=== PATIENT | male | born 1990 | race Caucasian/White ===

== ENCOUNTER 2021-12-15 07:49 | Emergency (ER) | payer OTHER, SELFPAY ==
[2021-12-15 07:55] VITALS: BP 137/89; PULSE 87; RESP 15; TEMP 36.9; O2SAT 97; BMI 27.2
--- NOTE | 2021-12-15 08:25 | CT_ITS ---
WS: [id number] CT ABDOMEN PELVIS TECHNIQUE: Contrast-enhanced CT of the abdomen and pelvis with coronal and sagittal reformatted image s. CLINICAL INFORMATION: abd pain COMPARISON: None. DLP: 466.[address] scans at [facility] use at least one of these dose optimization techniques: automated e xposure control; mA and/or kV adjustment per patient size (includes targeted exams where dose is matc hed to clinical indication); or iterative reconstruction. FINDINGS: Lung bases are well aerated. Normal portal vein and splenic vein. Mild hepatomegaly. Normal spleen. N ormal GE junction. Submucosal enhancement in the stomach can be seen with gastritis. Stomach and duod enum otherwise appear normal. Adrenal glands are normal. Normal renal parenchymal enhancement. No hyd ronephrosis. Normal pancreatic parenchymal enhancement. Normal caliber abdominal aorta. Celiac and SM A are patent. Normal caliber abdominal aorta. Normal sigmoid colon. No evidence of high-grade small or large bowel obstruction. Normal appendix in the RIGHT lower quadrant. No free fluid in the abdomen or pelvis. CT/CT abdomen pelvis w con* [id number] IMPRESSION: 1. Normal GE junction. Mild submucosal enhancement in the stomach can be seen with gastritis. Stomach and duodenum otherwise appear normal. 2. Mild hepatomegaly. 3. Normal caliber abdominal aorta. 4. No hydronephrosis in either kidney. 5. No other suspicious findings.
--- NOTE | 2021-12-15 08:30 | ED_ITS ---
HPI - Nausea/Vomiting/Diarrhea General: Chief complaint: Nausea/Vomiting/Diarrhea Stated complaint: Vomitting blood Time Seen by Provider: 12/15/21 07:50 Source: patient History of Present Illness: 31-year-old male presents emergency room with complaint of vomiting blood. He states he began vomiting yesterday and got progressively worse he has had several episodes with streaks of bright red blood. He is not on any blood thinners he has not previously had any upper GI bleeds or surgeries. He does not take any proton pump inhibitors or H2 blockers. He denies any fever sweats or chills denies any dysuria urgency or frequency no melena no hematochezia no black tarry stools. Denies regular use of alcohol no history of cirrhosis or esophageal varices. MD elicited complaint: nausea and vomiting Onset (ago): hour(s) Description of vomiting: watery and blood-streaked Associated nausea: Yes Associated abdominal pain: Yes Quality: cramping Exacerbating factors: none Relieving factors: none Associated symtoms: Reports nausea; Denies altered mental status, anxiety, bloating, change in vision, chest pain, cough, diaphoresis, decreased urine output, dizziness, dysuria, epistaxis, fatigue, fecal incontinence, fevers/chills, headache(s), anorexia, malaise, myalgias, numbness, palpitations, rash, short of breath, syncope, tenesmus, tinnitus or weakness Review of Systems Const: Denies: fever(s), chills, fatigue, malaise or diaphoresis Eyes: Denies: change in vision ENMT: Denies: tinnitus or epistaxis Card: Denies: chest pain, palpitations or syncope Resp: Denies: dyspnea, productive cough or non-productive cough GI: Reports: abdominal pain, nausea, vomiting and hematemesis; Denies: coffee ground emesis, diarrhea, bloating or fecal incontinence : Denies: flank pain, difficulty urinating, dysuria, urinary frequency, urinary urgency or urinary hesitancy Musc: Denies: neck pain or back pain Skin/Breast: Denies: rash or pruritus Neuro: Denies: headache(s) or dizziness Psych: Denies: anxiety PFSH ED PFSH: Medical History (Updated 12/15/21 @ 11:14 by Lele Early DO) No significant past medical history Surgical History (Updated 12/15/21 @ 08:33 by Lele Early DO) No significant past surgical history Social History (Updated 12/15/21 @ 08:33 by Lele Early DO) Smoking and tobacco status: current every day smoker Alcohol intake: current Alcohol intake frequency: 0-2 Drinks per Day Physical Exam Const: EXAM LIMITATIONS: no altered mental status GENERAL APPEARANCE: cooperative and comfortable ORIENTATION/CONSCIOUSNESS: Yes awake, Yes oriented to person, Yes oriented to place and Yes oriented to time HENMT: COMMON NORMALS: normocephalic, atraumatic and hearing grossly normal bilaterally HEAD & SCALP: normocephalic and atraumatic Resp: COMMON NORMALS: normal respiratory effort, No retractions, No use of accessory muscles and clear to auscultation bilaterally AUSCULTATION: clear to auscultation bilaterally Cardio: COMMON NORMALS: regular rate, regular rhythm and No murmurs present (Cardio) RATE: regular rate RHYTHM: regular rhythm GI: COMMON NORMALS: Soft to palpation and No hepatosplenomegaly present AUSCULTATION: Yes normoactive bowel sounds PALPATION: Yes Soft to palpation, No Tenderness to palpation present (GI), No Guarding due to palpation present (GI) and Yes No hepatosplenomegaly present Extremity: COMMON NORMALS: normal to inspection, capillary refill normal, no clubbing, cyanosis or edema, no calf tenderness and no pedal edema Neuro: SENSORIUM/ORIENTATION: Yes oriented to person, Yes oriented to place and Yes oriented to time Skin: COMMON NORMALS: no rashes or lesions noted GENERAL SKIN EXAM: no rashes or lesions noted Course Vital Signs: Vital signs: Vital Signs Temperature 98.4 F 12/15/21 07:55 Pulse Rate 74 12/15/21 10:30 Respiratory Rate 15 12/15/21 07:55 Blood Pressure 125/78 12/15/21 10:30 Pulse Oximetry 99 12/15/21 10:30 Oxygen Delivery Me thod 12/15/21 07:55 MDM - Nausea/Vomiting/Diarrhea Medical Decision Making Labs and imaging reviewed no further emesis while in the emergency room. 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 Return if has worsening symptoms. Medical Records I reviewed the patient's medical records. Lab Data I reviewed the patient's lab results. : 12/15/21 08:30 12/15/21 08:30 Radiology Impressions Abdomen/Pelvis CT 12/15/21 08:25 IMPRESSION: 1. Normal GE junction. Mild submucosal enhancement in the stomach can be seen with gastritis. Stomach and duodenum otherwise appear normal. 2. Mild hepatomegaly. 3. Normal caliber abdominal aorta. 4. No hydronephrosis in either kidney. 5. No other suspicious findings. Laboratory Results WBC 7.1 10^3/uL (4.0-10.0) 12/15/21 08:30 RBC 4.49 10^6/uL (4.1-5.3) 12/15/21 08:30 Hgb 14.9 g/dL (11.7-16.6) 12/15/21 08:30 Hct 43.1 % (42.0-52.0) 12/15/21 08:30 MCV 96.0 fl (80-94) H 12/15/21 08:30 MCH 33.2 pg (28.0-34.0) 12/15/21 08:30 MCHC 34.6 g/dL (30.0-36.0) 12/15/21 08:30 RDW 12.7 % (12.1-15.1) 12/15/21 08:30 Plt Count 417 10^3/cmm (130-400) H 12/15/21 08:30 MPV 9.1 fL (7.4-10.4) 12/15/21 08:30 Neut % (Auto) 80.3 % 12/15/21 08:30 Lymph % (Auto) 12.3 % 12/15/21 08:30 [place] % (Auto) 6.2 % 12/15/21 08:30 Eos % (Auto) 0.3 % 12/15/21 08:30 Baso % (Auto) 0.3 % 12/15/21 08:30 Neut # (Auto) 5.67 10^3/uL (1.8-7.7) 12/15/21 08:30 Lymph # (Auto) 0.9 10^3/uL (0.8-4.8) 12/15/21 08:30 [place] # (Auto) 0.4 10^3/uL (0.2-0.9) 12/15/21 08:30 Eos # (Auto) 0.0 10^3/uL (0.0-0.8) 12/15/21 08:30 Baso # (Auto) 0.0 10^3/uL (0.0-0.1) 12/15/21 08:30 Nucleated RBC % (auto) 0 % 12/15/21 08:30 Nucleated RBCs # 0.0 /100WBC 12/15/21 08:30 PT 13.50 SECONDS (12.1-14.9) 12/15/21 08:30 INR 1.00 (0.8-1.2) 12/15/21 08:30 APTT 31.4 SECONDS (23.9-36.7) 12/15/21 08:30 Sodium 138 mmol/L (136-145) 12/15/21 08:30 Potassium 3.8 mmol/L (3.5-5.1) 12/15/21 08:30 Chloride 101 mmol/L (98-107) 12/15/21 08:30 Carbon Dioxide 27 mmol/L (22-29) 12/15/21 08:30 Anion Gap 13.8 (5-19) 12/15/21 08:30 BUN 8 mg/dL (6-20) 12/15/21 08:30 Creatinine 0.9 mg/dL (0.7-1.2) 12/15/21 08:30 GFR Calculation 99.1 mL/min (90-130) 12/15/21 08:30 Glucose 110 mg/dL (65-115) 12/15/21 08:30 POC Glucose 103 mg/dL (70-110) 12/15/21 08:25 Calculated Osmolality 285 mOsm/kg (285-295) 12/15/21 08:30 Calcium 9.0 mg/dL (8.5-10.5) 12/15/21 08:30 Total Bilirubin 0.3 mg/dL (0.15-1.2) 12/15/21 08:30 AST 17 U/L (0-40) 12/15/21 08:30 ALT 12 U/L (0-41) 12/15/21 08:30 Alkaline Phosphatase 118 U/L (40-130) 12/15/21 08:30 Creatine Kinase 64 U/L (39-308) 12/15/21 08:30 Total Protein 7.1 g/dL (6.6-8.7) 12/15/21 08:30 Albumin 4.1 g/dL (3.5-5.2) 12/15/21 08:30 Globulin 3.0 g/dL (1.3-4.6) 12/15/21 08:30 Lipase 19 U/L (13-60) 12/15/21 08:30 Blood Type O Positive 12/15/21 08:30 Rho(D) Type Positive 12/15/21 08:30 Antibody Screen Negative 12/15/21 08:30 Discharge Plan Discharge Patient Disposition: Home Clinical Impression: Nausea and vomiting, Lela-Kurtz syndrome Condition: Stable Prescriptions: New ondansetron HCl 4 mg tablet 4 mg PO Q6H PRN (Reason: nausea and vomiting) Qty: 20 0RF Protonix 40 mg tablet,delayed release (DR/EC) 40 mg PO QAM Qty: 30 0RF Discharge Orders: Discharge ED (Routine); Ordered 12/15/21 Ordered By: Lele Early Referrals: Kae Holman MD [Primary Care Provider] - Discharge Diet: Full LIquid Discharge Activity: Increase activity as tolerated Patient Instructions: Opioid Safety, Pain Management Activity Restrictions/Additional Instructions: Clear liquid diet for 1 to 2 days and advance as tolerated start on the Protonix 40 mg twice a day for 7 days then once daily after that. Case management make arrangements for you to see general surgery for EGD. Return if you have worsening symptoms. Coding Level of Care Code ED Box Sealing Inspector for [place] Fwd Exam Detailed
[2021-12-15 08:41] LABS: Glucose Point of Care 103 mg/dL (70-110)
[2021-12-15 08:50] LABS: Basophils % 0.3 %; Eosinophils % 0.3 %; Hematocrit 43.1 % (42.0-52.0); Hemoglobin 14.9 g/dL (11.7-16.6); Lymphocytes # 0.9 10^3/uL (0.8-4.8); Lymphocytes % 12.3 %; Mean Corpuscular HGB Conc 34.6 g/dL (30.0-36.0); Mean Corpuscular Hemoglobin 33.2 pg (28.0-34.0); Mean Platelet Volume 9.1 fL (7.4-10.4); Monocytes # 0.4 10^3/uL (0.2-0.9); Monocytes % 6.2 %; Neutrophils # 5.67 10^3/uL (1.8-7.7); Neutrophils % 80.3 %; Nucleated Red Blood Cells % 0 %; Platelet Count 417 10^3/cmm (130-400); Red Blood Count 4.49 10^6/uL (4.1-5.3); Red Cell Distribution Width 12.7 % (12.1-15.1); White Blood Count 7.1 10^3/uL (4.0-10.0)
[2021-12-15] MEDS: iohexol 350 mg/mL 100 mL Btl IV (08:50)
[2021-12-15 09:01] VITALS: BP 135/82; PULSE 87; O2SAT 99
[2021-12-15 09:02] LABS: Partial Thromboplastin Time 31.4 SECONDS (23.9-36.7)
[2021-12-15 09:13] LABS: Alanine Aminotransferase 12 U/L (0-41); Albumin Level 4.1 g/dL (3.5-5.2); Alkaline Phosphatase 118 U/L (40-130); Anion Gap 13.8 (5-19); Aspartate Amino Transferase 17 U/L (0-40); Blood Urea Nitrogen 8 mg/dL (6-20); Carbon Dioxide 27 mmol/L (22-29); Chloride 101 mmol/L (98-107); Creatine Phosphokinase 64 U/L (39-308); Creatinine Clr Calc Pharmacy 132.8712; Glomerular Filtration Rate 99.1 mL/min (90-130); Glucose 110 mg/dL (65-115); Lipase 19 U/L (13-60); Osmolality Calculated 285 mOsm/kg (285-295); Potassium 3.8 mmol/L (3.5-5.1); Sodium 138 mmol/L (136-145); Total Bilirubin 0.3 mg/dL (0.15-1.2); Total Protein 7.1 g/dL (6.6-8.7)
[2021-12-15] MEDS: ondansetron 2 mg/ML SDV 2 mL 4 MG IVP (09:19)
[2021-12-15] MEDS: pantoprazole 40 mg SDV IVP (09:19)
[2021-12-15] MEDS: sodium chloride 0.9% 1,000 ML 999 ML IV ×2 (09:20→10:51)
[2021-12-15 09:30] VITALS: BP 128/73; PULSE 71; O2SAT 99
[2021-12-15 10:00] VITALS: BP 124/71; PULSE 75; O2SAT 97
[2021-12-15 10:30] VITALS: BP 125/78; PULSE 74; O2SAT 99
[2021-12-15 11:31] VITALS: BP 116/61; PULSE 68; RESP 16; O2SAT 98
== END 2021-12-15 11:33 | disposition home or self-care (01) ==
PROVIDERS: Emergency Provider Family Medicine; PCP Family Medicine
DX: R11.2 Nausea with vomiting, unspecified (principal); K22.6 Gastro-esophageal laceration-hemorrhage syndrome; F17.210 Nicotine dependence, cigarettes, uncomplicated
CPT/HCPCS: 36416; 74177; 80053; 82550; 82962; 83690; 85025; 85610; 85730; 86850; 86900; 96361; 96374; 96375; 99285; C9113; J2405; J7030; Q9967

== ENCOUNTER 2022-06-16 12:27 | Emergency (ER) | payer SELFPAY ==
[2022-06-16] VITALS (18 sets, daily range): BP systolic 120–161; BP diastolic 78–96; PULSE 90–97; RESP 16–18; TEMP 36.3; O2SAT 99–100
--- NOTE | 2022-06-16 13:56 | W.ED.EXTPRO ---
Documented by User: ALIRIO Espinoza 06/17/22 08:03 HPI - Extremity Problem General: Chief complaint: Extremity Problem,Nontraumatic Stated complaint: sores on legs Time Seen by Provider: 06/16/22 13:25 History of Present Illness: Patient is a 32-year-old male who comes to the ED with wounds on bilateral legs. Patient says symptoms started about a month and a half ago. First symptoms were small red sore area on skin around the mid ríos region bilaterally. Sores that began to open up and had green/yellow drainage. Sores then began to spread all throughout his legs bilaterally.. Over the last week it is gotten more painful and he rates the pain currently a 9 out of 10 and describes it as a burning type pain in his legs. Says generalized malaise, fatigue and chill. denies any fevers. Denies any IV drug use. Associated symptoms: Deny chest pain, fever(s) or rash Review of Systems Const: Reports: chills, fatigue and malaise; Denies: fever(s) Eyes: Denies: change in vision or eye discomfort ENMT: Denies: throat pain, odynophagia, nasal discharge or nasal congestion Card: Denies: chest pain, palpitations, edema, swelling of feet/ankles, dyspnea on exertion or orthopnea Resp: Denies: dyspnea, productive cough or non-productive cough GI: Denies: abdominal pain, nausea, vomiting, diarrhea, constipation or hematochezia : Denies: flank pain, difficulty urinating, dysuria or hematuria Musc: Denies: neck pain, back pain or extremity swelling Skin/Breast: Reports: sores (Multiple open sores on legs bilaterally.); Denies: rash Neuro: Denies: headache(s), numbness in extremities or weakness in extremities PFS ED PFSH: Medical History No significant past medical history Surgical History (Updated 12/15/21 @ 08:33 by Lele Early DO) No significant past surgical history Social History (Updated 12/15/21 @ 08:33 by Lele Early DO) Smoking and tobacco status: current every day smoker Alcohol intake: current Alcohol intake frequency: 0-2 Drinks per Day Physical Exam Const: COMMON NORMALS: patient oriented x3 and alert GENERAL APPEARANCE: cooperative HENMT: COMMON NORMALS: normocephalic HEAD & SCALP: normocephalic MOUTH: Normal oral and palatal mucosa present THROAT: posterior oropharynx normal and uvula midline Neck/C-Spine: COMMON NORMALS: supple GENERAL: Yes normal visual inspection Resp: COMMON NORMALS: normal respiratory effort, No retractions, No use of accessory muscles and clear to auscultation bilaterally AUSCULTATION: clear to auscultation bilaterally Cardio: COMMON NORMALS: regular rate, regular rhythm, S1 normal heart sound present, S2 normal heart sound present, No gallops present (Cardio), No clicks present (Cardio), No murmurs present (Cardio) and Peripheral pulses 2+ throughout RATE: regular rate RHYTHM: regular rhythm HEART SOUNDS: S1 normal heart sound present and S2 normal heart sound present PERIPHERAL PULSES: Peripheral pulses 2+ throughout GI: COMMON NORMALS: Normal to inspection, nondistended, normoactive bowel sounds present, Soft to palpation, non-tender and no masses PALPATION: Yes Soft to palpation : COMMON NORMALS: Yes no CVA tenderness BLADDER/KIDNEY EXAM: Yes no CVA tenderness Back/Pelvis: COMMON NORMALS: no CVA tenderness Extremity: NARRATIVE EXTREMITY EXAM: Patient has multiple open sores throughout legs bilaterally. No visible purulent drainage seen. Sores have surrounding erythema and warmth. Tenderness throughout his legs bilaterally. GENERAL: Yes edema (1+ pitting edema.) Neuro: COMMON NORMALS: patient oriented x3 SENSORIUM/ORIENTATION: Yes alert GAIT: Yes Normal gait present Skin: GENERAL SKIN EXAM: dry skin Course Vital Signs: Vital signs: Vital Signs Temperature 97.4 F L 06/16/22 13:16 Pulse Rate 90 06/16/22 16:23 Respiratory Rate 18 06/16/22 16:23 Blood Pressure 120/78 06/16/22 16:23 Pulse Oximetry 100 06/16/22 16:23 Oxygen Delivery Me thod Room Air 06/16/22 13:16 MDM - Extremity (Nontraumatic) Medical Decision Making Patient is a 32-year-old male who comes to the ED with wounds on bilateral legs. Patient says symptoms started about a month and a half ago. First symptoms were small red sore area on skin around the mid ríos region bilaterally. Sores that began to open up and had green/yellow drainage. Sores then began to spread all throughout his legs bilaterally.. Over the last week it is gotten more painful and he rates the pain currently a 9 out of 10 and describes it as a burning type pain in his legs. Says generalized malaise, fatigue and chill. denies any fevers. Denies any IV drug use. Vitals are stable patient is afebrile. Patient has multiple open sores throughout legs bilaterally. No visible purulent drainage seen. Sores have surrounding erythema and warmth. Tenderness throughout his legs bilaterally. CBC and CMP unremarkable. CRP 19.8 and lactic was 1.2. Blood cultures and wound culture pending. Patient was given dose of IV vancomycin here in the ED. Exam findings suspicious for MRSA cellulitis. I placed order with case management for patient to be referred to wound care clinic for follow-up. He was stable for discharge home and sent home with a prescription for high-dose Bactrim, mupirocin and hydrocodone for acute pain. Strict return to ED precautions given. Dr. Early reviewed case and agreed with plan. Lab Data I reviewed the patient's lab results. 06/16/22 14:17 06/16/22 14:17 Laboratory Results WBC 8.8 10^3/uL (4.0-10.0) 06/16/22 14:17 RBC 4.52 10^6/uL (4.1-5.3) 06/16/22 14:17 Hgb 15.0 g/dL (11.7-16.6) 06/16/22 14:17 Hct 44.7 % (42.0-52.0) 06/16/22 14:17 MCV 98.9 fl (80-94) H 06/16/22 14:17 MCH 33.2 pg (28.0-34.0) 06/16/22 14:17 MCHC 33.6 g/dL (30.0-36.0) 06/16/22 14:17 RDW 13.8 % (12.1-15.1) 06/16/22 14:17 Plt Count 417 10^3/cmm (130-400) H 06/16/22 14:17 MPV 9.2 fL (7.4-10.4) 06/16/22 14:17 Neut % (Auto) 71.2 % 06/16/22 14:17 Lymph % (Auto) 18.6 % 06/16/22 14:17 [place] % (Auto) 7.8 % 06/16/22 14:17 Eos % (Auto) 1.6 % 06/16/22 14:17 Baso % (Auto) 0.5 % 06/16/22 14:17 Neut # (Auto) 6.23 10^3/uL (1.8-7.7) 06/16/22 14:17 Lymph # (Auto) 1.6 10^3/uL (0.8-4.8) 06/16/22 14:17 [place] # (Auto) 0.7 10^3/uL (0.2-0.9) 06/16/22 14:17 Eos # (Auto) 0.1 10^3/uL (0.0-0.8) 06/16/22 14:17 Baso # (Auto) 0.0 10^3/uL (0.0-0.1) 06/16/22 14:17 Nucleated RBC % (auto) 0 % 06/16/22 14:17 Nucleated RBCs # 0.0 /100WBC 06/16/22 14:17 Sodium 135 mmol/L (136-145) L 06/16/22 14:17 Potassium 4.0 mmol/L (3.5-5.1) 06/16/22 14:17 Chloride 98 mmol/L (98-107) 06/16/22 14:17 Carbon Dioxide 27 mmol/L (22-29) 06/16/22 14:17 Anion Gap 14.0 (5-19) 06/16/22 14:17 BUN 9 mg/dL (6-20) 06/16/22 14:17 Creatinine 0.9 mg/dL (0.7-1.2) 06/16/22 14:17 GFR Calculation 98.4 mL/min (90-130) 06/16/22 14:17 Glucose 92 mg/dL (65-115) 06/16/22 14:17 Calculated Osmolality 278 mOsm/kg (285-295) L 06/16/22 14:17 Lactic Acid 1.2 mmol/L (0.5-2.2) 06/16/22 14:17 Calcium 9.2 mg/dL (8.5-10.5) 06/16/22 14:17 Total Bilirubin 0.3 mg/dL (0.15-1.2) 06/16/22 14:17 AST 30 U/L (0-40) 06/16/22 14:17 ALT 16 U/L (0-41) 06/16/22 14:17 Alkaline Phosphatase 170 U/L (40-130) H 06/16/22 14:17 C-Reactive Protein 19.8 mg/L (0.0-4.9) H 06/16/22 14:17 Total Protein 7.9 g/dL (6.6-8.7) 06/16/22 14:17 Albumin 4.0 g/dL (3.5-5.2) 06/16/22 14:17 Globulin 3.9 g/dL (1.3-4.6) 06/16/22 14:17 Discharge Plan Discharge Patient Disposition: Home Clinical Impression: MRSA cellulitis Condition: Stable Prescriptions: New Bactrim DS 800-160 mg tablet 2 tab PO BID 10 Days Qty: 40 0RF mupirocin 2 % ointment 1 applic topical BID Qty: 22 0RF Rx Instructions: Apply twice daily on open sores. Discharge Orders: Discharge ED (Routine); Ordered 06/16/22 Ordered By: Felipe Simental Discharge Diet: Regular Discharge Activity: Increase activity as tolerated Patient Instructions: MRSA, Cellulitis (ED), Opioid Safety Activity Restrictions/Additional Instructions: Follow-up with medical provider as directed. Case management should contact you in the next several days to set up an appointment with wound care clinic for follow-up on sores on legs. Take medications as prescribed. Return to the ER or your medical provider if condition worsens. Please read and understand discharge instructions. Thank you for choosing [facility] for your healthcare needs today. Please realize this is an emergency room and that we are providing you with a medical screening exam and this may not be complete and all inclusive of all the testing and or work up that you may need to determine your ailment or severity of your illness. It is very important that you follow up as instructed or that you return to the Emergency Department should you have concerns or if your condition changes or worsens in any way. Coding Level of Care Code ED Costume Seamstress for [place] Fwd Documented by User: Lele Early DO 06/17/22 14:50 HPI - Extremity Problem General: Chief complaint: Extremity Problem,Nontraumatic Stated complaint: sores on legs Time Seen by Provider: 06/16/22 13:25 PFS ED PFSH: Medical History No significant past medical history Surgical History (Updated 12/15/21 @ 08:33 by Lele Early DO) No significant past surgical history Social History (Updated 12/15/21 @ 08:33 by Lele Early DO) Smoking and tobacco status: current every day smoker Alcohol intake: current Alcohol intake frequency: 0-2 Drinks per Day Course Vital Signs: Vital signs: Vital Signs Temperature 97.4 F L 06/16/22 13:16 Pulse Rate 90 06/16/22 16:23 Respiratory Rate 18 06/16/22 16:23 Blood Pressure 120/78 06/16/22 16:23 Pulse Oximetry 100 06/16/22 16:23 Oxygen Delivery Me thod Room Air 06/16/22 13:16 MDM - Extremity (Nontraumatic) Medical Decision Making Patient is a 32-year-old male who comes to the ED with wounds on bilateral legs. Patient says symptoms started about a month and a half ago. First symptoms were small red sore area on skin around the mid ríos region bilaterally. Sores that began to open up and had green/yellow drainage. Sores then began to spread all throughout his legs bilaterally.. Over the last week it is gotten more painful and he rates the pain currently a 9 out of 10 and describes it as a burning type pain in his legs. Says generalized malaise, fatigue and chill. denies any fevers. Denies any IV drug use. Vitals are stable patient is afebrile. Patient has multiple open sores throughout legs bilaterally. No visible purulent drainage seen. Sores have surrounding erythema and warmth. Tenderness throughout his legs bilaterally. CBC and CMP unremarkable. CRP 19.8 and lactic was 1.2. Blood cultures and wound culture pending. Patient was given dose of IV vancomycin here in the ED. Exam findings suspicious for MRSA cellulitis. I placed order with case management for patient to be referred to wound care clinic for follow-up. He was stable for discharge home and sent home with a prescription for high-dose Bactrim, mupirocin and hydrocodone for acute pain. Strict return to ED precautions given. Dr. Early reviewed case and agreed with plan. Chart reviewed and patient discussed with midlevel. Agree with assessment and plan. Lab Data 06/16/22 14:17 06/16/22 14:17 Laboratory Results WBC 8.8 10^3/uL (4.0-10.0) 06/16/22 14:17 RBC 4.52 10^6/uL (4.1-5.3) 06/16/22 14:17 Hgb 15.0 g/dL (11.7-16.6) 06/16/22 14:17 Hct 44.7 % (42.0-52.0) 06/16/22 14:17 MCV 98.9 fl (80-94) H 06/16/22 14:17 MCH 33.2 pg (28.0-34.0) 06/16/22 14:17 MCHC 33.6 g/dL (30.0-36.0) 06/16/22 14:17 RDW 13.8 % (12.1-15.1) 06/16/22 14:17 Plt Count 417 10^3/cmm (130-400) H 06/16/22 14:17 MPV 9.2 fL (7.4-10.4) 06/16/22 14:17 Neut % (Auto) 71.2 % 06/16/22 14:17 Lymph % (Auto) 18.6 % 06/16/22 14:17 [place] % (Auto) 7.8 % 06/16/22 14:17 Eos % (Auto) 1.6 % 06/16/22 14:17 Baso % (Auto) 0.5 % 06/16/22 14:17 Neut # (Auto) 6.23 10^3/uL (1.8-7.7) 06/16/22 14:17 Lymph # (Auto) 1.6 10^3/uL (0.8-4.8) 06/16/22 14:17 [place] # (Auto) 0.7 10^3/uL (0.2-0.9) 06/16/22 14:17 Eos # (Auto) 0.1 10^3/uL (0.0-0.8) 06/16/22 14:17 Baso # (Auto) 0.0 10^3/uL (0.0-0.1) 06/16/22 14:17 Nucleated RBC % (auto) 0 % 06/16/22 14:17 Nucleated RBCs # 0.0 /100WBC 06/16/22 14:17 Sodium 135 mmol/L (136-145) L 06/16/22 14:17 Potassium 4.0 mmol/L (3.5-5.1) 06/16/22 14:17 Chloride 98 mmol/L (98-107) 06/16/22 14:17 Carbon Dioxide 27 mmol/L (22-29) 06/16/22 14:17 Anion Gap 14.0 (5-19) 06/16/22 14:17 BUN 9 mg/dL (6-20) 06/16/22 14:17 Creatinine 0.9 mg/dL (0.7-1.2) 06/16/22 14:17 GFR Calculation 98.4 mL/min (90-130) 06/16/22 14:17 Glucose 92 mg/dL (65-115) 06/16/22 14:17 Calculated Osmolality 278 mOsm/kg (285-295) L 06/16/22 14:17 Lactic Acid 1.2 mmol/L (0.5-2.2) 06/16/22 14:17 Calcium 9.2 mg/dL (8.5-10.5) 06/16/22 14:17 Total Bilirubin 0.3 mg/dL (0.15-1.2) 06/16/22 14:17 AST 30 U/L (0-40) 06/16/22 14:17 ALT 16 U/L (0-41) 06/16/22 14:17 Alkaline Phosphatase 170 U/L (40-130) H 06/16/22 14:17 C-Reactive Protein 19.8 mg/L (0.0-4.9) H 06/16/22 14:17 Total Protein 7.9 g/dL (6.6-8.7) 06/16/22 14:17 Albumin 4.0 g/dL (3.5-5.2) 06/16/22 14:17 Globulin 3.9 g/dL (1.3-4.6) 06/16/22 14:17 Discharge Plan Discharge Patient Disposition: Home Clinical Impression: MRSA cellulitis Condition: Stable Prescriptions: New Bactrim DS 800-160 mg tablet 2 tab PO BID 10 Days Qty: 40 0RF mupirocin 2 % ointment 1 applic topical BID Qty: 22 0RF Rx Instructions: Apply twice daily on open sores. Discharge Orders: Discharge ED (Routine); Ordered 06/16/22 Ordered By: Felipe Simental Discharge Diet: Regular Discharge Activity: Increase activity as tolerated Patient Instructions: MRSA, Cellulitis (ED), Opioid Safety Activity Restrictions/Additional Instructions: Follow-up with medical provider as directed. Case management should contact you in the next several days to set up an appointment with wound care clinic for follow-up on sores on legs. Take medications as prescribed. Return to the ER or your medical provider if condition worsens. Please read and understand discharge instructions. Thank you for choosing [facility] for your healthcare needs today. Please realize this is an emergency room and that we are providing you with a medical screening exam and this may not be complete and all inclusive of all the testing and or work up that you may need to determine your ailment or severity of your illness. It is very important that you follow up as instructed or that you return to the Emergency Department should you have concerns or if your condition changes or worsens in any way. Coding Level of Care Code ED Costume Seamstress for [place]
[2022-06-16] MEDS: sodium chloride 0.9% 500 ML 999 ML IV (14:22)
[2022-06-16] MEDS: morphine 4 mg/mL SDV 1 mL IVP (14:24)
[2022-06-16] MEDS: ondansetron 2 mg/ML SDV 2 mL 4 MG IVP (14:26)
[2022-06-16] MEDS: vancomycin 1,500 MG/300 ML PIGGYBACK 200 MG IV (14:29)
[2022-06-16 14:55] LABS: Basophils % 0.5 %; Eosinophils # 0.1 10^3/uL (0.0-0.8); Eosinophils % 1.6 %; Hematocrit 44.7 % (42.0-52.0); Lymphocytes # 1.6 10^3/uL (0.8-4.8); Lymphocytes % 18.6 %; Mean Corpuscular HGB Conc 33.6 g/dL (30.0-36.0); Mean Corpuscular Hemoglobin 33.2 pg (28.0-34.0); Mean Corpuscular Volume 98.9 fl (80-94); Mean Platelet Volume 9.2 fL (7.4-10.4); Monocytes # 0.7 10^3/uL (0.2-0.9); Monocytes % 7.8 %; Neutrophils # 6.23 10^3/uL (1.8-7.7); Neutrophils % 71.2 %; Nucleated Red Blood Cells % 0 %; Platelet Count 417 10^3/cmm (130-400); Red Blood Count 4.52 10^6/uL (4.1-5.3); Red Cell Distribution Width 13.8 % (12.1-15.1); White Blood Count 8.8 10^3/uL (4.0-10.0)
[2022-06-16 15:10] LABS: Alanine Aminotransferase 16 U/L (0-41); Alkaline Phosphatase 170 U/L (40-130); Aspartate Amino Transferase 30 U/L (0-40); Blood Urea Nitrogen 9 mg/dL (6-20); C Reactive Protein 19.8 mg/L (0.0-4.9); Calcium 9.2 mg/dL (8.5-10.5); Carbon Dioxide 27 mmol/L (22-29); Chloride 98 mmol/L (98-107); Globulin 3.9 g/dL (1.3-4.6); Glomerular Filtration Rate 98.4 mL/min (90-130); Glucose 92 mg/dL (65-115); Osmolality Calculated 278 mOsm/kg (285-295); Sodium 135 mmol/L (136-145); Total Bilirubin 0.3 mg/dL (0.15-1.2); Total Protein 7.9 g/dL (6.6-8.7)
[2022-06-16 15:11] LABS: Lactic Sepsis W/Reflex 1.2 mmol/L (0.5-2.2)
--- NOTE | 2022-06-16 15:13 | DCPLANNER ---
customer acquisition manager seen patient due to no primary care physician - patient stated that he did not have insurance, case checker gave patient the information to [facility] where patient can apply for sliding scale.
--- NOTE | 2022-06-17 09:07 | DCPLANNER ---
Addendum entered by Ayanna Vieyra 06/19/22 08:52: Patient had a follow up appointment scheduled with wound care - patient did attend appointment. Addendum entered by Ayanna Vieyra 06/17/22 09:59: Patient has a follow up appointment scheduled for , June 18, 2022 at 10:00 with Dianne Nelson at [facility]. Original Note: credit and collection manager had message to schedule a follow up appointment for patient with [facility]. credit and collection manager sent patients information to the front office staff at wound care. Patients information will be printed and reviewed. Clinic will call patient with appointment information.
== END 2022-06-16 16:25 | disposition home or self-care (01) ==
PROVIDERS: Emergency Provider Physician Assistant
DX: L03.116 Cellulitis of left lower limb (principal); L03.115 Cellulitis of right lower limb; A49.02 Methicillin resistant Staphylococcus aureus infection, unspecified site
CPT/HCPCS: 36415; 80053; 83605; 85025; 86140; 87040; 87070; 87075; 87077; 87186; 87205; 96365; 96366; 96375; 99284; J2270; J2405; J3370; J7040

== ENCOUNTER 2023-06-16 12:34 | Emergency (ER) | payer SELFPAY ==
--- NOTE | 2023-06-16 12:34 | ECG_ITS ---
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 Measurements Intervals Cando Rate: 72 P: -22 PA: 145 QRS: -31 QRSD: 89 T: -16 QT: 360 QTc: 395 Interpretive Statements SINUS RHYTHM LEFT AXIS DEVIATION [QRS AXIS < -30] MODERATE VOLTAGE CRITERIA FOR LVH, CONSIDER NORMAL VARIANT [MEETS CRITERIA IN ONE OF: R(aVL), S(V1), R(V5), R(V5/V6)+S(V1)] No previous ECG available for comparison Electronically Signed On 06-16-2023 15:30:54 CDT by Shant James M.D. [id number] claudio
[2023-06-16 12:39] VITALS: BP 129/82; PULSE 75; RESP 16; TEMP 36.7; O2SAT 99
--- NOTE | 2023-06-16 12:57 | ED_ITS ---
HPI - Chest Pain 2 General: Chief Complaint: Chest Pain Stated Complaint: Chest pains Time Seen by Provider: 06/16/23 12:56 Source: patient and family Mode of arrival: ambulatory Limitations: no limitations History of Present Illness: Patient is a 33-year-old male with no known past medical history here for complaints of intermittent right-sided chest pain over the past 3 days or so. Patient states that is a very specific area to the right side of his chest that has been intermittently present. He states the pain comes on and lasts for approximately 20 minutes before subsiding back to baseline. He states there always seems to be a small amount of discomfort here but the exacerbations are only lasting approximately 20 minutes. No alleviating or worsening factors to his discomfort. Does not seem to be affected by movement or exertion. Denies any known injury or trauma. He denies shortness of breath, difficulty breathing. No hemoptysis. No recent surgeries. Denies lower extremity swelling or calf pain. MD complaint: chest pain Onset (ago): day(s) Timing of current episode: episodic Prior episodes: No Pain location: right chest Pain radiation: none Severity: moderate Quality: sharp Relieving factors: nothing Exacerbating factors: nothing Associated symptoms: Deny abdominal pain, dyspnea, fever(s), nausea, palpitations, syncope or vomiting Treatment prior to arrival: none Risk Factors: Coronary artery disease risk factors: none Thoracic aortic dissection risk factors: none Review of Systems 2 Const: Denies: fever(s), chills, body aches, fatigue or malaise Card: Reports: chest pain; Denies: palpitations, irregular heart rhythm, edema, swelling of feet/ankles, lightheadedness, syncope, pre-syncope, dyspnea on exertion, orthopnea, leg pain with exertion or acrocyanosis Resp: Reports: pain on inspiration; Denies: dyspnea, productive cough, non-productive cough, wheezing, change in phlegm color, hemoptysis or chest congestion GI: Denies: abdominal pain, nausea, vomiting or diarrhea : Denies: flank pain, dysuria or hematuria Musc: Denies: neck pain, back pain, extremity pain or joint pain Skin/Breast: Denies: rash Neuro: Denies: headache(s), numbness in extremities, weakness in extremities, sensory changes or dizziness PFS ED 2 PFSH: Medical History No significant past medical history Surgical History No significant past surgical history Social History Smoking and tobacco/nicotine status: current every day tobacco/nicotine user Alcohol intake: current Alcohol intake frequency: 0-2 Drinks per Day Physical Exam 2 Const: COMMON NORMALS: no acute distress, average body habitus, patient oriented x3, no limitations, healthy appearing, alert and well nourished Neck/C-Spine: COMMON NORMALS: no lymphadenopathy, no meningeal signs, no JVD and No carotid bruits Chest: COMMONS NORMALS: normal inspection of the chest Chest images (male): 1. direct reproducible pain R anterior chest wall at costosternal joint Resp: COMMON NORMALS: normal respiratory effort and clear to auscultation bilaterally AUSCULTATION: clear to auscultation bilaterally Cardio: COMMON NORMALS: no JVD, regular rate and regular rhythm RATE: r egular rate RHYTHM: regular rhythm Extremity: COMMON NORMALS: no clubbing, cyanosis or edema, no calf tenderness and no pedal edema GENERAL: Yes normal exam except as noted Neuro: AZRA COMA SCALE: document GCS findings Azra coma scale eye opening: Spontaneous Azra coma scale verbal response: Orientated Raymond coma scale motor response: Obey commands Azra coma scale total score: 15 COMMON NORMALS: patient oriented x3 SENSORIUM/ORIENTATION: Yes alert MENINGEAL SIGNS: Yes no meningeal signs Skin: COMMON NORMALS: no rashes or lesions noted GENERAL SKIN EXAM: no rashes or lesions noted Course 2 Vital Signs: Vital signs: Vital Signs Temperature 98.1 F 06/16/23 12:39 Pulse Rate 78 06/16/23 13:49 Respiratory Rate 14 06/16/23 13:49 Blood Pressure 127/84 06/16/23 13:49 Pulse Oximetry 100 06/16/23 13:49 Oxygen Delivery Me thod Room Air 06/16/23 12:39 MDM - Chest Pain Medical Decision Making Patient is a 33-year-old male with no known past medical history here for point tenderness to the right costosternal junction consistent with costochondritis. His vital signs are unremarkable. His EKG showing sinus rhythm. CXR is unremarkable. Recommend anti-inflammatories, rest, ice/heat. Recommend follow- up with primary care in 1 to 2 weeks if symptoms do not seem to be improving. Return precautions given. Medical Records I reviewed the patient's medical records. All radiology interpretation(s) finalized by discharge EKG Data EKG 1: EKG interpretation date: 06/16/23 EKG interpretation time: 12:34 Interpretation: Sinus rhythm Rate [address] elevation or depression noted Discharge Plan Discharge Patient Disposition: Home Clinical Impression: Acute costochondritis Condition: Stable Prescriptions: No Action ibuprofen 200 mg Tablet 400 mg PO Q6H PRN (Reason: Pain) Discharge Orders: Discharge ED (Routine); Ordered 06/16/23 Ordered By: Rosalva Herring Patient Instructions: Costochondritis - Adult, Costochondritis (DC) Activity Restrictions/Additional Instructions: As we discussed begin taking [id number] anti-inflammatory such as ibuprofen or naproxen. You may alternate ice and heat to the area. Rest is much as possible. You may follow-up with a primary care provider in 1 to 2 weeks if symptoms do not seem to be improving. 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
--- NOTE | 2023-06-16 13:05 | XR_ITS ---
WS: [id number] Exam: XR chest 1V portable [id number] Date/Time of Exam: 06/16/2023 1:18 PM Reason For Exam: R chest pain No priors. Findings: The lungs are clear and fully expanded. Costophrenic angles are sharp. No infiltrates. Bronchovascula r relief appears normal. Cardiac silhouette is unremarkable. Bony elements are intact. IMPRESSION: Unremarkable chest radiograph.
--- NOTE | 2023-06-16 13:09 | PC.PHAR ---
pt states he takes no prescription medications-pt states only takes ibuprofen prn
[2023-06-16 13:49] VITALS: BP 127/84; PULSE 78; RESP 14; O2SAT 100
== END 2023-06-16 13:51 | disposition home or self-care (01) ==
PROVIDERS: Emergency Provider Physician Assistant
DX: M94.0 Chondrocostal junction syndrome [Tietze] (principal); Z72.0 Tobacco use
CPT/HCPCS: 71045; 93005; 99284

== ENCOUNTER 2023-08-25 21:49 | Emergency (ER) | payer SELFPAY ==
[2023-08-25 21:58] VITALS: BP 117/80; PULSE 101; RESP 16; TEMP 36.8; O2SAT 95; BMI 18.6
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
[2023-08-25] MEDS: lidocaine-epi 1% 20 mL INJ INJECTION (22:34)
[2023-08-25 23:15] VITALS: BP 112/72; PULSE 102; RESP 18; O2SAT 96
[2023-08-25 23:38] VITALS: PULSE 100; O2SAT 100
== END 2023-08-25 23:40 ==
PROVIDERS: Emergency Provider Nurse Practitioner Family
DX: S01.01XA Laceration without foreign body of scalp, initial encounter (principal); Z72.0 Tobacco use; Y00.XXXA Assault by blunt object, initial encounter
CPT/HCPCS: 12002; 12013; 70450; 99284